=== PATIENT | male | born 1960 | race Caucasian/White ===

== ENCOUNTER 2018-10-16 12:25 | Outpatient (CLI) ==
--- NOTE | 2018-10-16 13:28 | DI ---
EXAM: CHEST FRONTAL AND LATERAL VIEWS HISTORY: Cough and congestion. COMPARISON: 01/15/2009 FINDINGS: Heart size and mediastinal contour remain within normal limits. No acute infiltrates. Normal vascularity with no pleural fluid or pneumothorax. The bony thorax has no acute finding. IMPRESSION: No acute process.
== END 2018-10-16 12:26 | disposition home or self-care (01) ==
LOC: RAD 12:25
PROVIDERS: ATTEND Internal Medicine
DX: R05 Cough (principal); R09.89 Other specified symptoms and signs involving the circulatory and respiratory systems